=== PATIENT | male | born 1975 | race Caucasian/White ===

== ENCOUNTER 2022-02-16 14:46 | Observation (INO) | payer BC ==
[2022-02-16 15:34] LABS: Basophils % (A) 1 %; Eosinophils # (A) 0.3 k/uL (0-0.7); Eosinophils % (A) 5 %; HCT 40.6 % (39.0-53.0); Lymphocytes % (A) 17 %; MCH 32.5 pg (25.0-35.0); MCHC 34.5 g/dL (31.0-37.0); MCV 94.2 fL (80.0-100.0); Mean Platelet Volume 7.4; Monocytes # (A) 0.4 k/uL (0-1.0); Monocytes % (A) 7 %; Neutrophils # (A) 4.2 k/uL (1.3-7.7); Neutrophils % (A) 68 %; Platelet Count 275 k/uL (150-450); RBC 4.31 m/uL (4.30-5.90); RDW 12.5 % (11.5-15.5); WBC 6.2 k/uL (3.8-10.6)
[2022-02-16 15:42] LABS: INR 0.9 (<1.2); Prothrombin Time 10.4 sec (9.0-12.0)
[2022-02-16 15:43] LABS: ALT 18 U/L (4-49); AST 22 U/L (17-59); African American GFR (CKD) >90 (>60 ml/min/1.73 sqM); Albumin 4.5 g/dL (3.5-5.0); Alkaline Phosphatase 108 U/L (38-126); Anion Gap 11 mmol/L; Blood Urea Nitrogen 20 mg/dL (9-20); Calcium 9.3 mg/dL (8.4-10.2); Carbon Dioxide 25 mmol/L (22-30); Chloride 101 mmol/L (98-107); Glucose 97 mg/dL (74-99); Non-African American GFR(CKD) >90 (>60 ml/min/1.73 sqM); Potassium 4.1 mmol/L (3.5-5.1); Sodium 137 mmol/L (137-145); Total Bilirubin 0.3 mg/dL (0.2-1.3); Total Protein 7.6 g/dL (6.3-8.2)
--- NOTE | 2022-02-16 15:55 | XR ---
EXAMINATION TYPE: XR chest 2V DATE OF EXAM: 02/16/2022 COMPARISON: None INDICATION: Pain TECHNIQUE: Frontal and lateral views of the chest are obtained. FINDINGS: The heart size is normal. The pulmonary vasculature is normal. The lungs are clear. IMPRESSION: 1. No acute pulmonary process.
--- NOTE | 2022-02-16 18:33 | ED ---
General Adult HPI - General Chief complaint: Chest Pain Stated complaint: Chest Pain Time Seen by Provider: 02/16/22 17:49 Source: patient, RN notes reviewed Mode of arrival: ambulatory Limitations: no limitations - History of Present Illness Initial comments: Patient is a pleasant 46-year-old male presenting to the emergency department with concerns with chest discomfort. Onset of symptoms was yesterday. Patient had moved a heavy object hour or so prior to this. Patient has pressure in his chest with some radiation towards left shoulder. No associated dyspnea, nausea, or diaphoresis. No history of chronic similar symptoms previously. Patient does have some improvement of symptoms today and is mild to moderate. No leg pain or leg swelling. - Related Data Allergies Allergy/AdvReac Type Severity Reaction Status Date / Time No Known Allergies Allergy Verified 02/16/22 15:15 Review of Systems ROS Statement: Those systems with pertinent positive or pertinent negative responses have been documented in the HPI. ROS Other: All systems not noted in ROS Statement are negative. Constitutional: Denies: fever Eyes: Denies: eye pain ENT: Denies: ear pain Respiratory: Denies: cough, dyspnea Cardiovascular: Reports: chest pain Endocrine: Denies: fatigue Gastrointestinal: Denies: nausea Genitourinary: Denies: dysuria Musculoskeletal: Denies: back pain Skin: Denies: rash Neurological: Denies: weakness Past Medical History Additional Past Medical History / Comment(s): Colitis History of Any Multi-Drug Resistant Organisms: None Reported Past Surgical History: No Surgical Hx Reported Past Psychological History: No Psychological Hx Reported Smoking Status: Never smoker Past Alcohol Use History: Occasional Past Drug Use History: Marijuana General Exam Limitations: no limitations General appearance: alert, in no apparent distress Head exam: Present: normocephalic Eye exam: Present: normal appearance Neck exam: Present: normal inspection Respiratory exam: Present: normal lung sounds bilaterally. Absent: chest wall tenderness Cardiovascular Exam: Present: regular rate, normal rhythm, normal heart sounds Expanded Peripheral pulses: 2+: Radial (R), Radial (L), Posterior Tibialis (R), Posterior Tibialis (L) GI/Abdominal exam: Present: soft. Absent: tenderness Extremities exam: Present: normal inspection. Absent: pedal edema, calf tenderness Neurological exam: Present: alert Psychiatric exam: Present: normal affect, normal mood Skin exam: Present: normal color Course Vital Signs 02/16/22 15:13 Temperature 98.5 F Pulse Rate 76 Respiratory 20 Rate Blood Pressure 134/86 O2 Sat by Pulse 100 Oximetry EKG Findings - EKG Comments: EKG Findings:: No sinus rhythm 72. SC 172. QRS 106. QT 367. QTC 391. Normal axis. Normal QRS. Nonspecific T waves. Medical Decision Making - Medical Decision Making Patient made aware of results and plan. Case was discussed with Dr. Borrego, who will admit covering Dr. Michael. - Lab Data Result diagrams: 02/16/22 15:15 02/16/22 15:15 Lab Results 02/16/22 02/16/22 02/16/22 Range/Units 15:15 15:15 15:15 WBC 6.2 (3.8-10.6) k/uL RBC 4.31 (4.30-5.90) m/uL Hgb 14.0 (13.0-17.5) gm/dL Hct 40.6 (39.0-53.0) % MCV 94.2 (80.0-100.0) fL MCH 32.5 (25.0-35.0) pg MCHC 34.5 (31.0-37.0) g/dL RDW 12.5 (11.5-15.5) % Plt Count 275 (150-450) k/uL MPV 7.4 Neutrophils % 68 % Lymphocytes % 17 % Monocytes % 7 % Eosinophils % 5 % Basophils % 1 % Neutrophils # 4.2 (1.3-7.7) k/uL Lymphocytes # 1.0 (1.0-4.8) k/uL Monocytes # 0.4 (0-1.0) k/uL Eosinophils # 0.3 (0-0.7) k/uL Basophils # 0.0 (0-0.2) k/uL PT 10.4 (9.0-12.0) sec INR 0.9 (<1.2) APTT 26.0 (22.0-30.0) sec Sodium 137 (137-145) mmol/L Potassium 4.1 (3.5-5.1) mmol/L Chloride 101 (98-107) mmol/L Carbon Dioxide 25 (22-30) mmol/L Anion Gap 11 mmol/L BUN 20 (9-20) mg/dL Creatinine 0.90 (0.66-1.25) mg/dL Est GFR (CKD-EPI)AfAm >90 (>60 ml/min/1.73 sqM) Est GFR (CKD-EPI)NonAf >90 (>60 ml/min/1.73 sqM) Glucose 97 (74-99) mg/dL Calcium 9.3 (8.4-10.2) mg/dL Total Bilirubin 0.3 (0.2-1.3) mg/dL AST 22 (17-59) U/L ALT 18 (4-49) U/L Alkaline Phosphatase 108 (38-126) U/L Troponin I (0.000-0.034) ng/mL Total Protein 7.6 (6.3-8.2) g/dL Albumin 4.5 (3.5-5.0) g/dL 02/16/22 Range/Units 15:15 WBC (3.8-10.6) k/uL RBC (4.30-5.90) m/uL Hgb (13.0-17.5) gm/dL Hct (39.0-53.0) % MCV (80.0-100.0) fL MCH (25.0-35.0) pg MCHC (31.0-37.0) g/dL RDW (11.5-15.5) % Plt Count (150-450) k/uL MPV Neutrophils % % Lymphocytes % % Monocytes % % Eosinophils % % Basophils % % Neutrophils # (1.3-7.7) k/uL Lymphocytes # (1.0-4.8) k/uL Monocytes # (0-1.0) k/uL Eosinophils # (0-0.7) k/uL Basophils # (0-0.2) k/uL PT (9.0-12.0) sec INR (<1.2) APTT (22.0-30.0) sec Sodium (137-145) mmol/L Potassium (3.5-5.1) mmol/L Chloride (98-107) mmol/L Carbon Dioxide (22-30) mmol/L Anion Gap mmol/L BUN (9-20) mg/dL Creatinine (0.66-1.25) mg/dL Est GFR (CKD-EPI)AfAm (>60 ml/min/1.73 sqM) Est GFR (CKD-EPI)NonAf (>60 ml/min/1.73 sqM) Glucose (74-99) mg/dL Calcium (8.4-10.2) mg/dL Total Bilirubin (0.2-1.3) mg/dL AST (17-59) U/L ALT (4-49) U/L Alkaline Phosphatase (38-126) U/L Troponin I <0.012 (0.000-0.034) ng/mL Total Protein (6.3-8.2) g/dL Albumin (3.5-5.0) g/dL - Radiology Data Radiology results: image reviewed (Chest x-ray shows no acute process) Disposition Clinical Impression: Chest pain Disposition: ADMITTED IP TO THIS HOSP Is patient prescribed a controlled substance at d/c from ED?: No Referrals: Butch Mcfarland MD [Primary Care Provider] - 1-2 days Time of Disposition: 18:33
[2022-02-16] MEDS ORDERED: ASPIRIN 81 MG PO STA (18:34)
[2022-02-16] MEDS ORDERED: NITROGLYCERIN SL TABS 0.4 MG TAB SUBLINGUAL PRN (18:34)
[2022-02-17] MEDS: NITROGLYCERIN OINT 1 INCH/GM PACKET TOPICAL SCH ×2 (00:26→06:30)
[2022-02-17] MEDS ORDERED: MELATONIN 1 MG TAB PO STA (01:05)
[2022-02-17] MEDS ORDERED: MELATONIN 3 MG TABLET PO SCH (01:26)
--- NOTE | 2022-02-17 01:47 | P.HPIM ---
History of Present Illness H&P Date: 02/16/22 Chief Complaint: left sided chest pain 46 year old male with UC patient comes in for evaluation of chest tightness. he reports carrying heavy load yesterday, resulted in some presure and tension over his left shoulder. he then went to sleep , and when woke up this morning , he was concerned due to left sided chest and shoulder tension that was getting worse with deep korina thing, denies any associated nausea, vomiting, palpitations, sweating , or SOB. he denies any cardiac history in the past. denies any recent hospital stay or travel. he reports history of UC controlled with meds , denies any diarrhea or bleeding denies any tobacco smoking, illicit drugs or alcohol Review of Systems Pertinent positives as noted in HPI. All other systems were reviewed and are negative Past Medical History Additional Past Medical History / Comment(s): Colitis History of Any Multi-Drug Resistant Organisms: None Reported Past Surgical History: No Surgical Hx Reported Past Psychological History: No Psychological Hx Reported Smoking Status: Never smoker Past Alcohol Use History: Occasional Past Drug Use History: Marijuana - Past Family History familiy Additional Family Medical History / Comment(s): no reported cardiac history Medications and Allergies Home Medications Medication Instructions Recorded Confirmed Type Albuterol Inhaler [Ventolin Hfa 2 puff INHALATION RT-Q4H PRN 02/16/22 02/16/22 History Inhaler] Aspirin EC [Ecotrin Low Dose] 81 mg PO ONETIME PRN MDD PAIN 02/16/22 02/16/22 History Mesalamine [Lialda] 3.6 gm PO DAILY 02/16/22 02/16/22 History Allergies Allergy/AdvReac Type Severity Reaction Status Date / Time No Known Allergies Allergy Verified 02/16/22 20:08 Physical Exam Vitals: Vital Signs Temp Pulse Resp BP Pulse Ox 02/16/22 15:13 98.5 F 76 20 134/86 100 Intake and Output 02/16/22 02/16/22 02/16/22 06:59 14:59 22:59 Other: Weight 71.668 kg Constitutional: No acute distress, conversant, pleasant Eyes: Anicteric sclerae, moist conjunctiva, Pupils equal round reactive to light ENMT: NC/AT Oropharynx clear, no erythema, or exudates Neck: Supple, no masses, or JVD No carotid bruits No thyromegaly Lungs: Clear to auscultation Clear to percussion Normal respiratory effort, no accessory muscle use Cardiovascular: Heart regular in rate and rhythm, No murmurs, gallops, or rubs No peripheral edema Abdominal: Soft Nontender, no guarding, rebound or rigidity Abdomen moving with respiration Normoactive bowel sounds No hepatomegaly, No splenomegaly No palpable mass No abdominal wall hernia noted Skin: Normal temperature, tone, texture, turgor No induration No subcutaneous nodules No rash, lesions No ulcers Extremities: No digital cyanosis No clubbing Pedal pulses intact and symmetrical Radial pulses intact and symmetrical No calf tenderness Psychiatric: Alert and oriented to person, place and time Appropriate affect fair judgement Neuro Muscles Strength 5/5 in all 4 extremities Sensation to light touch grossly present throughout Cranial nerves II-XII grossly intact No focal sensory deficits Lymphatics: no palpable cervical or supraclavicular lymph nodes Results CBC & Chem 7: 02/16/22 15:15 02/16/22 15:15 Assessment and Plan Assessment: atypical chest pain rule out ACS, unlikely cardiac in origin EKG no acute changes CXR no acute pathology trops negative X2 monitoring and evaluation advisor monitor vital signs ASA cardiology consult A1c, lipid panel , TSH pain control labs reviewed unremarkable EKG no acute ST changes full code DVT PPX heparin sc tid
[2022-02-17] MEDS ORDERED: ASPIRIN 325 MG TAB PO SCH (09:00)
[2022-02-17] MEDS ORDERED: BALSALAZIDE DISODIUM 750 MG CAPSULE PO SCH (09:00)
[2022-02-17] MEDS ORDERED: ASPIRIN 81 MG PO SCH (09:00)
[2022-02-17] MEDS: HEPARIN SODIUM,PORCINE/PF 5,000 UNIT/0.5 ML SYRINGE SQ SCH ×2 (09:04→16:47)
[2022-02-17 09:10] LABS: Chol/HDL Ratio 3.13 Ratio; LDL Cholesterol,Calculated 106.2 mg/dL (0.0-131.0); VLDL Calculation 19.04 mg/dL (5.00-40.00)
--- NOTE | 2022-02-17 10:05 | P.CRDCN ---
History of Present Illness History of present illness: HISTORY OF PRESENTING ILLNESS This is a pleasant 46-year-old male past medical history of colitis. 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 Patient presents to the emergency department with complaints of left-sided chest and shoulder pain. Wednesday patient states that he was lifting heavy groceries, afterwards he had right ankle pain, midsternal chest pain and left shoulder pain. His pain improved throughout the day, however yesterday at work, he lifts heavy objects at work at [employer] and had the chest pain again. He describes it as a pressure and sharp. Nonradiating, nonexertional however did occur after lifting heavy objects. He denies any associated shortness of breath, nausea, vomiting, diaphoresis, lightheadedness or dizziness. He denies any palpitations. He denies a specific alleviating factors. He did have some aggravation his left shoulder movement of his left arm. This chest pain has improved. He denies any history of CAD, PR, stroke, diabetes, hypertension, dyslipidemia, seizure. He denies any family history of cardiac disease. He is a nonsmoker, occasional marijuana use, occasional alcohol use. No prior cardiac workup in the past DIAGNOSTICS * EKG reveals sinus rhythm, heart rate 72, nonspecific T-wave abnormalities in lead III. * Telemetry tracings indicate sinus mechanism. * Chest xray no acute cardiopulmonary process * Laboratory reviewed, CBC unremarkable, d-dimer negative, troponin negative 3, sodium 137, potassium 4.1, BUN 20, syncope 0.9, triglycerides 95, cholesterol 184, LDL 106, HDL 58 * Current home medications include aspirin and albuterol REVIEW OF SYSTEMS At the time of my exam: CONSTITUTIONAL: Denies fever or chills. CARDIOVASCULAR: Denies chest pain, shortness of breath, orthopnea, PND or palpitations. RESPIRATORY: Denies cough. GASTROINTESTINAL: Denies abdominal pain, diarrhea, constipation, nausea or vomiting. MUSCULOSKELETAL: Denies myalgias. NEUROLOGIC: Denies numbness, tingling, headache or weakness. ENDOCRINE: Denies fatigue, weight change, polydipsia or polyurina. GENITOURINARY: Denies burning, hematuria or urgency with micturation. HEMATOLOGIC: Denies history of anemia or bleeding. PHYSICAL EXAMINATION Blood pressure 123/70, heart 62, afebrile, saturations 97% on room air CONSTITUTIONAL: No apparent distress. HEENT: Head is normocephalic. Pupils are equal, round. Sclerae anicteric. Mucous membranes of the mouth are moist. No JVD. No carotid bruit. CHEST EXAMINATION: Lungs are clear to auscultation. No chest wall tenderness is noted on palpation or with deep breathing. HEART EXAMINATION: Regular rate and rhythm. S1, S2 heard. No murmurs, gallops or rub. ABDOMEN: Soft, nontender. Positive bowel sounds. EXTREMITIES: 2+ peripheral pulses, no lower extremity edema and no calf tenderness. SKIN: Warm, dry NEUROLOGIC EXAMINATION: Patient is awake, alert and oriented x3. ASSESSMENT Chest pain, possibly musculoskeletal, daily chronic syndrome has ruled out Left shoulder pain, likely musculoskeletal PLAN An acute coronary event has been ruled out with no EKG evidence of ischemia and negative cardiac enzymes. Obtain 2D echocardiogram and doppler study to assess cardiac structure and function. Perform Stress Echo test to assess for stress induced cardiac ischemia. If abnormal will consider coronary angiography. If stress test is negative for stress- induced ischemia, no further inpatient workup from cardiology perspective. Thank you kindly for this consultation. Nurse practitioner note has been reviewed by physician. Signing provider agrees with the documented findings, assessment, and plan of care. Past Medical History Additional Past Medical History / Comment(s): Colitis History of Any Multi-Drug Resistant Organisms: None Reported Past Surgical History: No Surgical Hx Reported Past Psychological History: No Psychological Hx Reported Smoking Status: Never smoker Past Alcohol Use History: Occasional Past Drug Use History: Marijuana - Past Family History familiy Additional Family Medical History / Comment(s): no reported cardiac history Medications and Allergies Home Medications Medication Instructions Recorded Confirmed Type Albuterol Inhaler [Ventolin Hfa 2 puff INHALATION RT-Q4H PRN 02/16/22 02/16/22 History Inhaler] Aspirin EC [Ecotrin Low Dose] 81 mg PO ONETIME PRN MDD PAIN 02/16/22 02/16/22 History Mesalamine [Lialda] 3.6 gm PO DAILY 02/16/22 02/16/22 History Allergies Allergy/AdvReac Type Severity Reaction Status Date / Time No Known Allergies Allergy Verified 02/16/22 20:08 Physical Exam Vitals: Vital Signs Temp Pulse Resp BP Pulse Ox 02/17/22 06:27 98 F 57 L 16 112/77 100 02/17/22 01:22 98.7 F 61 18 98/56 97 02/16/22 20:13 81 18 117/79 02/16/22 15:13 98.5 F 76 20 134/86 100 Intake and Output 02/16/22 02/17/22 02/17/22 22:59 06:59 14:59 Other: Weight 71.668 kg Results 02/16/22 15:15 02/16/22 15:15 Cardiac Enzymes 02/16/22 02/16/22 02/16/22 Range/Units 15:15 15:15 20:57 AST 22 (17-59) U/L Troponin I <0.012 <0.012 (0.000-0.034) ng/mL 02/16/22 Range/Units 22:52 AST (17-59) U/L Troponin I <0.012 (0.000-0.034) ng/mL Coagulation 02/16/22 Range/Units 15:15 PT 10.4 (9.0-12.0) sec APTT 26.0 (22.0-30.0) sec CBC 02/16/22 Range/Units 15:15 WBC 6.2 (3.8-10.6) k/uL RBC 4.31 (4.30-5.90) m/uL Hgb 14.0 (13.0-17.5) gm/dL Hct 40.6 (39.0-53.0) % Plt Count 275 (150-450) k/uL Comprehensive Metabolic Panel 02/16/22 Range/Units 15:15 Sodium 137 (137-145) mmol/L Potassium 4.1 (3.5-5.1) mmol/L Chloride 101 (98-107) mmol/L Carbon Dioxide 25 (22-30) mmol/L BUN 20 (9-20) mg/dL Creatinine 0.90 (0.66-1.25) mg/dL Glucose 97 (74-99) mg/dL Calcium 9.3 (8.4-10.2) mg/dL AST 22 (17-59) U/L ALT 18 (4-49) U/L Alkaline Phosphatase 108 (38-126) U/L Total Protein 7.6 (6.3-8.2) g/dL Albumin 4.5 (3.5-5.0) g/dL Current Medications Generic Name Dose Route Start Last Admin Trade Name Freq PRN Reason Stop Dose Admin Balsalazide 2,250 mg 02/17/22 09:00 Balsalazide Disodium 750 Mg Capsule PO TID VANESSA Heparin Sodium (Porcine) 5,000 unit 02/17/22 08:00 Heparin Sodium,Porcine/Pf 5,000 Unit/0.5 Ml Syringe SQ Q8HR VANESSA Melatonin 3 mg 02/17/22 01:26 02/17/22 05:28 Melatonin 3 Mg Tablet PO Not Given HS VANESSA Nitroglycerin 1 inch 02/17/22 00:00 02/17/22 06:30 Nitroglycerin Oint 1 Inch/Gm Packet TOPICAL Not Given Q6HR VANESSA Nitroglycerin 0.4 mg 02/16/22 18:34 Nitroglycerin Sl Tabs 0.4 Mg Tab SUBLINGUAL Q5M PRN Chest Pain Sodium Chloride 10 ml 02/16/22 21:00 02/16/22 20:27 Sodium Chloride 0.9% Flush 10 Ml Syringe IV 10 ml BID VANESSA Administration Intake and Output 02/16/22 02/17/22 02/17/22 22:59 06:59 14:59 Other: Weight 71.668 kg 02/16/22 15:15 02/16/22 15:15
[2022-02-17 14:44] VITALS: BP 121/78; PULSE 95; RESP 16; TEMP 98.3
--- NOTE | 2022-02-17 15:56 | P.PN ---
Subjective Progress Note Date: 02/17/22 Hospital course: Patient is a very pleasant 46-year-old male with a past medical history of ulcerative colitis. He presented to the emergency department on 02/16/22 with a chief complaint of chest pain radiating into left shoulder worse upon taking a deep breath. Patient underwent full evaluation. CBC, coags, and CMP were unremarkable. D-dimer was negative at 0.19. Troponin also negative at less than 0.012. Chest x-ray negative for acute cardiopulmonary process. EKG also revealing normal findings showing normal sinus rhythm at 72 bpm with no noted T- wave or ST abnormalities showing no signs of acute ischemia. Patient was admitted under our services with consultation to cardiology. Troponins were trended overnight all negative at less than 0.0123 draws. An echocardiogram was completed and currently pending results. Lipid profile was unremarkable. Patient has had full resolution of previously reported chest pain/discomfort. He was evaluated by cardiology and underwent a stress echo which is currently pending results. Physical exam: Patient seen and fully evaluated at bedside this morning. Patient resting comfortably and reports being free from any complaints including headache, lightheadedness, dizziness, chest pain, palpitations, shortness of breath, exertional dyspnea, abdominal pain, nausea, vomiting, or experiencing any numbness/tingling/weakness/swelling in his extremities. Vital signs reviewed and stable. General: Nontoxic, no distress and appears stated age. Derm: Skin warm and dry, normal coloration for ethnicity. Head: Atraumatic, normocephalic and symmetric. Eyes: EOMs intact, no lid lag, and anicteric sclera Mouth: no lip lesions, mucus membranes moist Cardiovascular: regular rate and rhythm with normal S1S2, no murmur, positive posterior tibial pulses bilaterally, and cap refill < 2 seconds. Lungs: Respirations even, regular, and unlabored on room air. Lungs CTA bilaterally, no rhonchi, no rales, no wheezing, and no accessory muscle usage. Abdominal: soft, nontender to palpation, no guarding, no appreciable organ omegaly Ext: ROM intact. No gross muscle atrophy, no edema, no contractures Neuro: Speech clear, face symmetrical and CN II-XII grossly intact with no noted focal neuro deficits Psych: Alert and oriented to person, place, time, and situation. Appropriate and pleasant affect. Assessment and Plan of Care: Chest pain, acute coronary event ruled out -Cardiology consult, appreciate further recommendations -Telemetry monitoring -Trend troponins -Cardiac diet, NPO at midnight -Aspirin, atorvastatin, and metoprolol -Lipid profile with a.m. labs. -Echocardiogram Inflammatory bowel disease with history of Ulcerative colitis -Continue daily medication regimen with mesalamine. CODE STATUS: Full code DVT prophylaxis: Heparin Discussed with: Patient and RN Anticipated discharge date: Later today versus tomorrow pending stress echo results Anticipated discharge place: Home A total of 32 minutes was spent on the care of this complex patient more than 50% of the time was spent in counseling and care coordination. Objective - Vital Signs Vital signs: Vital Signs Temp 98.3 F 02/17/22 14:43 Pulse 95 02/17/22 14:43 Resp 16 02/17/22 14:43 BP 121/78 02/17/22 14:43 Pulse Ox 97 02/17/22 14:43 FiO2 Intake & Output 02/16/22 02/17/22 02/17/22 18:59 06:59 18:59 Weight 71.668 kg 71.668 kg - Labs CBC & Chem 7: 02/16/22 15:15 02/16/22 15:15
--- NOTE | 2022-02-17 16:47 | CA ---
Stress Echo Report Georges Damon Age: 46 Gender: M : 1975 Exam Date: 02/17/2022 12:13 Exam Location: [facility] Stress Ht (in): 67 Wt (lb): 158 Ordering Physician: Belinda Chavez Referring Physician: [place], Roll Finisher: MIGUEL, Technologist Procedure CPT: Indication: Chest Pain ICD-9 Codes: Rhythm: Patient History: Chest Pain Cardiac Medications: Medications in past 24 hours: Contrast: Stress Results Protocol: Wally Total dose(mL): Exercise Duration (min:sec): 12:[address] Depression (mm): Angina Score: Thorpe Score: METS: 12.3 Resting HR: 72 Resting BP: 118 / 60 Peak HR: 171 Peak BP: 187 / 84 Max Predicted HR: 173 99 % Max Predicted HR Target HR: 147 Double Product: 62203 Stress Summary: BP Response: Reason for Termination: Reached target heart rate or work-load Cardiac Symptoms: None ECG Analysis Resting ECG: Normal sinus rhythm normal axis normal intervals Stress ECG: Patient exercised on Wally protocol for 12 minutes achieving 13 met 99% of predicted maximal heart rate without chest pain or diagnostic ST segment depression Arrhythmia: Echo Analysis Resting Echo: Normal left ventricular size wall motion systolic function Peak Echo Analysis: Normal hyperdynamic response of all segments of myocardium noted MEASUREMENTS (Male/Female) Normal Values CONCLUSIONS Excellent exercise tolerance Negative stress test by EKG criteria Negative stress echo Dr. Merlin James MD (Electronically Signed) Final Date: 17 February 2022 16:46
--- NOTE | 2022-02-17 16:52 | CA ---
Transthoracic Echo Report Name: Georges Damon Age: 46 Gender: M : 1975 Exam Date: 02/17/2022 12:34 Exam Location: [facility] Echo Ht (in): 67 Wt (lb): 158 Ordering Physician: Belinda Chavez Attending/Referring Phys: Foundry Finisher Mercedez Gasca RDCS Procedure CPT: Indications: Chest Pain Cardiac Hx: Technical Quality: Good Contrast 1: Total Dose (mL): Contrast 2: Total Dose (mL): MEASUREMENTS (Male / Female) Normal Values 2D ECHO LV Diastolic Diameter PLAX 4.0 cm 4.2 - 5.9 / 3.9 - 5.3 cm LV Systolic Diameter PLAX 2.8 cm IVS Diastolic Thickness 1.2 cm 0.6 - 1.0 / 0.6 - 0.9 cm LVPW Diastolic Thickness 1.2 cm 0.6 - 1.0 / 0.6 - 0.9 cm LV Relative Wall Thickness 0.6 RV Internal Dim ED PLAX 3.2 cm LA Systolic Diameter LX 2.9 cm 3.0 - 4.0 / 2.7 - 3.8 cm LA Volume 39.8 cm??? 18 - 58 / 22 - 52 cm??? M-MODE Aortic Root Diameter MM 3.1 cm MV E Point Septal Separation 0.7 cm AV Cusp Separation MM 2.3 cm DOPPLER AV Peak Velocity 149.1 cm/s AV Peak Gradient 8.9 mmHg MV Area PHT 3.1 cm??? Mitral E Point Velocity 72.9 cm/s Mitral A Point Velocity 66.4 cm/s Mitral E to A Ratio 1.1 MV Deceleration Time 241.3 ms FINDINGS Left Ventricle Left ventricular ejection fraction is estimated at 60-65 %. Left ventricular cavity size normal. Mildly increased septal wall thickness. Right Ventricle Normal right ventricular size and function. Unable to estimate the right ventricular systolic pressure. Right Atrium Normal right atrial size. Left Atrium Normal left atrial size. No evidence for an atrial septal defect. Mitral Valve Structurally normal mitral valve. No mitral stenosis, regurgitation or prolapse. Aortic Valve Trileaflet aortic valve. No aortic valve stenosis or regurgitation. Tricuspid Valve Structurally normal tricuspid valve. No tricuspid stenosis, regurgitation or prolapse. Pulmonic Valve Structurally normal pulmonic valve. Pericardium Normal pericardium. No pericardial effusion. Aorta Normal size aortic root and proximal ascending aorta. CONCLUSIONS Normal LV function Previewed by: Dr. Merlin James MD (Electronically Signed) Final Date: 17 February 2022 16:51
--- NOTE | 2022-02-17 17:18 | P.DS ---
Providers Date of admission: 02/16/22 18:35 Expected date of discharge: 02/17/22 Attending physician: Aaliyah Kee MD Consults: 02/16/22 18:34 Consult Physician Urgent Consulting Provider: Nasim Page Consult Reason/Comments: cp Do you want consulting provider notified?: Yes Primary care physician: Butch Mcfarland MD Hospital Course: Discharge Diagnosis: Chest pain, acute coronary event ruled out Inflammatory bowel disease with history of Ulcerative colitis. Continue daily medication regimen with mesalamine. Hospital Course: Patient is a very pleasant 46-year-old male with a past medical history of ulcerative colitis. He presented to the emergency department on 02/16/22 with a chief complaint of chest pain radiating into left shoulder worse upon taking a deep breath. Patient underwent full evaluation. CBC, coags, and CMP were unremarkable. D-dimer was negative at 0.19. Troponin also negative at less than 0.012. Chest x-ray negative for acute cardiopulmonary process. EKG also revealing normal findings showing normal sinus rhythm at 72 bpm with no noted T- wave or ST abnormalities showing no signs of acute ischemia. Patient was admitted under our services with consultation to cardiology. Troponins were trended overnight all negative at less than 0.0123 draws. An echocardiogram was completed and currently pending results. Lipid profile was unremarkable. Patient has had full resolution of previously reported chest pain/discomfort. He was evaluated by cardiology and underwent a stress echo. Echocardiogram was completed revealing an EF of 60-65% with no reported structural or valvular abnormalities. Stress echo revealing excellent exercise tolerance and negative stress test by EKG and stress echo criteria. Cardiology recommending no further inpatient workup. Patient is medically stable at this time, he remains free from any chest pain or discomfort and is stable for discharge home. Patient to follow up outpatient with PCP and cardiology. Physical exam: Please see progress note written earlier today to review full detailed physical examination. . A total of 31 minutes of time were spent preparing this complex discharge summary. Pt was discharged on 02/17/22 at 5:13 PM I reviewed the documentation as provided by the WALTER above, who is the original author of this note. I agree with the documented assessment and plan, with the following changes: none Patient Condition at Discharge: Stable Plan - Discharge Summary Discharge Rx Participant: No New Discharge Prescriptions: Continue Mesalamine [Lialda] 3.6 gm PO DAILY Aspirin EC [Ecotrin Low Dose] 81 mg PO ONETIME PRN MDD PAIN PRN Reason: Chest Pain Albuterol Inhaler [Ventolin Hfa Inhaler] 2 puff INHALATION RT-Q4H PRN PRN Reason: Shortness Of Breath Discharge Medication List Albuterol Inhaler [Ventolin Hfa Inhaler] 2 puff INHALATION RT-Q4H PRN 02/16/22 [History] Aspirin EC [Ecotrin Low Dose] 81 mg PO ONETIME PRN MDD PAIN 02/16/22 [History] Mesalamine [Lialda] 3.6 gm PO DAILY 02/16/22 [History] Follow up Appointment(s)/Referral(s): Butch Mcfarland MD [Primary Care Provider] - 1-2 days Merlin James MD [STAFF PHYSICIAN] - 1 Week Patient Instructions/Handouts: Chest Pain (DC) Activity/Diet/Wound Care/Special Instructions: Activity: As tolerated. Take breaks as needed. Diet: Heart healthy and carb consistent diet. Avoid salts, or foods with hidden salts such as canned or boxed foods and frozen dinners. Extra salt makes your heart work harder and traps the fluid in your body for longer. Special Instructions: Take all of your medications as directed and remember to keep all of your doctor's appointments and follow-up as needed. Thank you for allowing us to participate in your care, it was truly a pleasure having you for our patient!!! Discharge Disposition: HOME SELF-CARE
== END 2022-02-17 17:23 | disposition home or self-care (01) ==
LOC: EC 14:46 → 6NMEDSUR 18:35
PROVIDERS: ADMIT Family Medicine; ATTEND Family Medicine
DX: R07.89 Other chest pain (principal); M25.512 Pain in left shoulder; M25.571 Pain in right ankle and joints of right foot; K51.90 Ulcerative colitis, unspecified, without complications; Z79.899 Other long term (current) drug therapy; X50.0XXA Overexertion from strenuous movement or load, initial encounter; Y99.0 Civilian activity done for income or pay
CPT/HCPCS: 96372; 99285; 36415; 93005; 93306; 93351; 85379; 80061; 80053; 84484; 85025; 85610; 85730; 71046; G0378 ×2; J1644

== ENCOUNTER → 2023-04-20 | Outpatient (CLI) | payer BC ==
--- NOTE | 2023-04-20 20:25 | XR ---
EXAMINATION TYPE: XR cervical spine limited DATE OF EXAM: 04/20/2023 3:22 PM CLINICAL INDICATION:Male, 48 years old with history of M542 CERVICALGIA; [facility] COMPARISON: None TECHNIQUE: The cervical spine was imaged in frontal, lateral, and odontoid. FINDINGS: The osseous structures show normal alignment without evidence of an acute fracture. Minimal osteophyt e formation of the vertebral bodies.. Pedicles are intact. Soft tissues are within normal limits. Th e odontoid appears intact. IMPRESSION: 1. No fracture or dislocation. 2. Minimal degenerative disc disease changes of the cervical spine.
--- NOTE | 2023-04-21 06:43 | MR ---
EXAMINATION TYPE: MR brain and iac wo/w con DATE OF EXAM: 04/20/2023 COMPARISON: NONE HISTORY: Left side hearing loss TECHNIQUE: Multiplanar, multisequence images of the brain and brainstem along with internal auditory canals are all performed without and with IV contrast, utilizing 7.5 mL intravenous Gadavist . FINDINGS: Diffusion weighted images demonstrate no evidence of a recent infarct or other diffusion ab normality. There is no extra-axial fluid collection or significant white matter signal abnormality. The ventricular system and cisternal spaces are normal in size and appearance. The brain volume is age appropriate. Midline structures demonstrate normal morphology. The craniocervical junction appears within normal limits. Post contrast images demonstrate no abnormal enhancement. The dural venous sinuses appear pa tent. Mild to moderate mucosal thickening involving the inferior maxillary sinuses is present. Modera te to severe mucosal thickening involving the anterior ethmoid sinuses is seen. The globes are intact bilaterally. No suspicious fluid signal is seen in the mastoid air cells bilaterally. The vestibulocochlear comple xes are symmetric and felt within normal limits. No suspicious enhancing cerebellopontine angle mass is identified bilaterally. IMPRESSION: No significant findings seen to account for patient's symptoms of left-sided hearing loss . Chronic paranasal sinus disease otherwise unremarkable study.
== END | disposition home or self-care (01) ==
LOC: RADMRIMAIN 13:54
PROVIDERS: ATTEND Otolaryngology
DX: H90.A22 Sensorineural hearing loss, unilateral, left ear, with restricted hearing on the contralateral side (principal); M54.2 Cervicalgia
CPT/HCPCS: 72040; 70553; A9585